=== PATIENT | male | born 1960 | race Caucasian/White ===

== ENCOUNTER 2024-05-03 19:29 | Emergency (ER) | payer BC, SELFPAY ==
[2024-05-03 19:31] VITALS: BP 154/92
[2024-05-03 19:47] LABS: Urine Albumin Negative (Neg - Trace); Urine Bilirubin Negative (Negative); Urine Character Clear (Clear); Urine Color Yellow; Urine Glucose Negative (Negative); Urine Ketone Negative (Negative); Urine Leukocyte Negative (Negative); Urine Nitrite Negative (Negative); Urine Occult Blood Negative (Negative); Urine Specific Gravity 1.005 (<1.030); Urine Urobilinogen Negative (Neg - 1+)
[2024-05-03 19:48] LABS: % Basophils 0.7 % (0-2); % Eosinophils 1.5 % (0-6); % Immature Granulocytes 0.2 % (0-0.5); % Lymphocytes 45.9 % (20.5-51.1); % Monocytes 11.6 % (1.7-9.3); % Neutrophils 40.1 % (42.2-75.2); Absolute Eosinophils 0.1 10^3/uL (0-0.7); Absolute Lymphocytes 2.1 10^3/uL (1.2-3.4); Absolute Monocytes 0.5 10^3/uL (0.1-0.6); Absolute Neutrophils 1.8 10^3/uL (1.4-6.5); Hematocrit 41.5 % (39.0-52.0); Hemoglobin 14.6 g/dL (13.0-18.0); Mean Corp Hgb Conc. 35.2 g/dL (33.0-37.0); Mean Corpuscular Hgb 30.4 pg (27.0-31.0); Mean Corpuscular Volume 86.5 fL (80.0-94.0); Mean Platelet Volume 9.6 fL (7.4-10.4); Nucleated Red Blood Cells % 0 % (-); Platelet Count 201 10^3/uL (130-400); Red Cell Dist. Width 12.4 % (11.5-14.5); White Blood Cell Count 4.6 10^3/uL (4.8-10.8)
[2024-05-03 20:09] LABS: ALT (SGPT) 21 U/L (0-50); AST (SGOT) 33 U/L (17-59); Albumin 4.5 g/dl (3.5-5.0); Alkaline Phosphatase 65 U/L (38-126); Blood Urea Nitrogen 12 mg/dl (9-20); Calcium 9.3 mg/dl (8.4-10.2); Carbon Dioxide 27 mmol/L (22-30); Chloride 100 mmol/L (98-107); Glucose 113 mg/dl (70-99); Sodium 141 mmol/L (135-145); Total Bilirubin 1.1 mg/dl (0.2-1.3); Total Protein 7.2 g/dl (6.3-8.2); eGFR > 60.00
--- NOTE | 2024-05-03 20:40 | ED.GENMED ---
History of Present Illness
General
Chief Complaint: Male Genito-Urinary Symptoms
Source: patient
Exam Limitations: none
Time Seen by Provider: 05/03/24 20:01
History of Present Illness
History of Present Illness:
This is a 64 year old male that comes in with c/o difficulty voiding. States that last night around 10 pm he started to have a hard time urinating. States that his stream was not good States that ht then started with some pain and very little was
coming out and his flow was decreased. State that he started with abd pain. States that he got through the night and today he went to . States that he was told that his urine was negative but they gave him a scrip for Cipro which he did start.
States that he has 1 dose. States that he increased his water and tea intake. States that he started to feel good and he had no pain. States that after dinner he started again with difficulty voiding and pain. States that he laid in bed and the pain
increased. States that he was nauseated and that he had urinary burning. Denies any fever, chills, chest pain, SOB, vomiting, diarrhea, headache, dizziness.
Past History
Past History
ED Past Medical History: Other (BPH, Urinary retention, )
ED Past Surgical History: Orthopedic (Ruptured hamstring repair)
Social History
Tobacco: Non-smoker
Alcohol: Occasional
Drug: None
Personal:
Living: with family
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
Family History
Family History: Other (Noncontributory)
Review of Systems
Review of Systems
All Other Systems: ROS reviewed and negative except as documented in HPI and ROS
Constitutional: Reports no symptoms; Denies fever or chills
EENT: Reports no symptoms
Respiratory: Reports no symptoms; Denies cough or trouble breathing
Cardiac: Reports no symptoms; Denies chest pain
ABD/GI: Reports abdominal pain and nausea; Denies vomiting or diarrhea
: Reports dysuria, frequency and difficulty voiding
Musculoskeletal: Reports no symptoms
Skin: Reports no symptoms
Neurological: Reports no symptoms; Denies dizzy or headache
Psychiatric: Reports no symptoms
Phy Exam
General Physical Exam
General Presentation: well appearing and no apparent distress
General age: appears stated age
General Skin: warm and dry
General Habitus: normal
General Mental: alert
General Hydration: appears well hydrated
ENT Exam
ENT Exam: TM's normal, pharynx normal and neck supple
Eye Exam
Eye Exam: EOMI
Cardiovascular Exam
Cardiovascular Exam: regular rate/rhythm, no edema, no murmur and normal peripheral pulses
Pulmonary Exam
Pulmonary Exam: lungs clear, no respiratory distress, no rales, chest non tender, no crackles, no rhonchi, no wheezing and no cough
Gastrointestinal Exam
Gastrointestinal Exam: normal bowel sounds, soft, no organomegaly, no pulsatile mass, non distended and tender (discomfort over his bladder)
Musculoskeletal Exam
Musculoskeletal Exam: full ROM and no edema
Skin Exam
Skin Exam: normal color, warm/dry, no rash and no petechia
Psychiatric Exam
Psychiatric Exam: normal mood/affect
Course
Orders/Labs/Results
Orders:
Orders
05/03/24 19:38
CBC/With Diff [Complete Blood Count/With Diff] Urgent
CMP [Comprehensive Metabolic Panel] Urgent
Urinalysis Reflex To Culture Urgent
Date Specimen was Collected: 05/03/24
Time Specimen was Collected: 19:34
05/03/24 20:13
Bladder Scan- Treatment ONCE
Comment: Pre and post void
05/03/24 20:49
Phenazopyridine HCl [Pyridium] 200 mg PO NOW STA
05/03/24 20:50
CT Abd/pel Without Iv Or Oral Urgent
Comment:
Reason For Exam: Pain in penus and bladder
Abnormal Lab Results
05/03/24
19:38
WBC 4.6 L 10^3/uL
(4.8-10.8)
Neutrophils % 40.1 L %
(42.2-75.2)
Monocytes % 11.6 H %
(1.7-9.3)
Glucose 113 H mg/dl
(70-99)
05/03/24 19:38
05/03/24 19:38
WBC very slightly low. Glucose nonfasting. Urine negative for infection.
Vital Signs
Initial and Last Documented VS:
Initial Vital Signs
Temp Pulse Resp BP Pulse Ox
98.2 F 74 18 154/92 98
05/03/24 19:31 05/03/24 19:31 05/03/24 19:31 05/03/24 19:31 05/03/24 19:31
Last Documented Vital Signs
Temp Pulse Resp BP Pulse Ox
98.2 F 73 16 150/80 98
05/03/24 19:31 05/03/24 20:58 05/03/24 20:58 05/03/24 20:58 05/03/24 20:58
MDM/Problems Addressed
Differential Diagnosis Includes:
Urinary tract infection, Urinary retention.
MDM/Problems Addressed:
This is a 64 year old male that comes in with c/o difficulty voiding. States that he was seen at and was told that his urine was negative for given a prescription for Cipro which he took one dose. States that he has discomfort down into his
penis.
will check, labs, urine and CT scan. Will given IV fluids and Pyridium for bladder spasm.
Back into see patient. States that the Pyridium helped a lot. Explained that his CT shows that his Prostate is enlarged and pushing on the bladder. Patient urine is negative and there are no ureteral calculus. Patient to follow up with the
Urologist. Will give prescription for Pyridium. Will leave it up to patient if he want's to continue with the cipro. patient to return with any concerns.
Chronic conditions affecting care:
Urinary retention. Enlarged prostate
Acute Exacerbation and/or Progression of Chronic Illness:
Urinary retention.
*Radiology
Radiology exam reviewed: radiology read reviewed (ct nO SIGNIFICANT ACUTE abnormality identified in the abdomen or pelvis, within the limits of unenhanced CT, as described above. Prostatomegaly bulging into the bladder base. Bilateral L5 pars
defects with associated grade 2 anterolisthesis of L5 on S1. )
*Pulse Oximetry
Patient hypoxic: no
*EKG
Interpreted by ED Provider?: NA
Rate: EKG- N/A
*Principal Security Architect Interpretation
Rate: Principal Security Architect- N/A
*Critical Care Note
Total Time (30-74mins, 75-104mins- exclusive of procedures): Not Applicable
ED Attending Note
-
Portions of this chart may have been created with voice recognition software.� Occasional wrong word or��sound alike� substitutions may have occurred due to the inherent limitations of voice recognition software.
Discharge Plan
Departure
Patient Disposition: Home (Routine Discharge)
Date of Disposition: 05/03/24
Time of Disposition: 22:11
Patient with high blood pressure during this ER visit?: Yes
Condition: Good
Covid-19: Not Applicable
Discharge Problem:
Urinary difficulty
Instructions: BLOOD PRESSURE
Prescriptions:
New
phenazopyridine [Pyridium] 200 mg tablet
200 mg PO TID PRN (Reason: Pain) Qty: 10 0RF
No Action
tamsulosin 0.4 MG capsule
0.4 mg PO DAILY Qty: 5 0RF
Referrals:
Ana Olsen CRNP [Family Provider] -
Activity Restrictions/Additional Instructions:
As discussed, your blood work is normal and your urine is negative for infectioin. Your CT shows that your Prostate is pushing into the bladder. This may be causing your difficulty with urination. Please follow up with your Urologist for further
evaluaiton. You have had a prescription for Pyridium sent to your Pharmacy. This will help with the discomfort/spasm. Please increase your water intake to 8-8oz glasses daily. IF YOU HAVE ANY OTHER CONCERNS PLEASE RETURN TO THE EMERGENCY ROOM
Interventions
Interventions:
*Risk Screen - Suicide Last Done: 05/03/24 19:31
*General Assessment Last Done: 05/03/24 19:31
ED-Male Genitourinary Assessment Last Done: 05/03/24 19:57
Discharge Date and Time
Print Language: POLISH
[2024-05-03] MEDS: Pyridium 200 MG PO (20:55)
[2024-05-03 20:58] VITALS: BP 150/80
== END 2024-05-03 22:34 | disposition home or self-care (01) ==
LOC: EMR 19:29
PROVIDERS: Emergency Medicine; EMERGENCY PHYSICIAN Emergency Medicine; FAMILY PHYSICIAN Nurse Practitioner Adult Health
DX: N40.1 Benign prostatic hyperplasia with lower urinary tract symptoms (principal); R33.9 Retention of urine, unspecified; R30.9 Painful micturition, unspecified
CPT/HCPCS: 99284; 51798; 74176; 80053; 81003; 85025

== ENCOUNTER → 2025-08-08 17:52 | Outpatient (REF) | payer OTHER, SELFPAY | LOC: MRI 3T 17:52 | PROVIDERS: ATTENDING PHYSICIAN Urology; FAMILY PHYSICIAN Nurse Practitioner Primary Care; REFERRING PHYSICIAN Radiology Diagnostic Radiology | DX: R97.20 Elevated prostate specific antigen [PSA] (principal); Z13.5 Encounter for screening for eye and ear disorders | CPT/HCPCS: 70030; 72197; A9575 ==